=== PATIENT | male | born 1950 | race Caucasian/White ===

== ENCOUNTER 2021-03-12 12:27 | Observation (INO) ==
[~2021-03-12 12:27] MED LIST: Buffered Lidocaine 1% SYRIN 1 ml INTRADERM ONE; Lactated Ringers 1000 ml BAG 1,000 ML IV SCH
[2021-03-12] MEDS ORDERED: Gentamicin ADULT 140 MG in NS 0.9% 100 ml BAG 100 ML IVPB ONE (13:00)
[2021-03-12] MEDS ORDERED: cefTRIAXone 2 GM ADDV.VIAL 2 GM in NS 0.9% 100 ml BAG 100 ML IV ONE (14:00)
[2021-03-12] MEDS ORDERED: Propofol 10 mg/ml 100 ML BTL 100 ML ONE (15:36)
[2021-03-12] MEDS ORDERED: Furosemide 20 mg/2 ml IV VIAL ONE (15:36)
[2021-03-12] MEDS ORDERED: Propofol 10 MG/ML 20 ML BTL ONE ×2 (15:39→18:13)
[2021-03-12] MEDS ORDERED: fentaNYL 100 mcg/2 ml 50 MCG/ML VIAL ONE ×3 (15:39→20:35)
[2021-03-12] MEDS ORDERED: Phenylephrine IV 10 MG/ML 1 ml VIAL ONE (15:39)
[2021-03-12] MEDS ORDERED: Lidocaine 2% PF 5 ML VIAL ONE (15:41)
[2021-03-12] MEDS ORDERED: Prochlorperazine 5 mg/ml 2 ml VIAL (10 mg) IV PRN (16:29)
[2021-03-12] MEDS ORDERED: Naloxone 0.4 mg VIAL 0.4 mg/ml 1 ml VIAL IV PRN (16:29)
[2021-03-12] MEDS ORDERED: Morphine 4 MG/ML VIAL (1 ml) IV PRN (16:29)
[2021-03-12] MEDS ORDERED: HYDROcodone/ACETAMIN 5/325 mg TAB PO PRN (16:29)
[2021-03-12] MEDS ORDERED: fentaNYL 100 mcg/2 ml 50 MCG/ML VIAL IV PRN (16:29)
[2021-03-12] MEDS ORDERED: Phenylephrine 40 mcg/mL 10mL (400mcg) SYRINGE ONE (18:07)
[2021-03-12] MEDS ORDERED: Ondansetron 4 mg VIAL 2 MG/ML 2 ml VIAL ONE (19:17)
[2021-03-12 20:52] LABS: ABS Eosinophils 0.1 10^3/ul (0-0.6); ABS Lymphocytes 1.9 10^3/ul (1.0-4.8); ABS Monocytes 0.9 10^3/ul (0-0.8); ABS Neutrophils 12.2 10^3/ul (1.5-7.7); Eosinophil % 0.8 %; Hematocrit 39 % (42-52); Lymphocyte % 12.6 %; Mean Corpuscular HGB Conc 36 g/dL (31-36); Mean Corpuscular Hemoglobin 32 pg (27-31); Mean Corpuscular Volume 88 fL (80-94); Mean Platelet Volume 8.6 fL (7.4-10.4); Platelet Count 209 10^3/uL (150-450); Red Cell Distribution Width 14 % (10-15); White Blood Count 15.1 10^3/uL (3.5-10.8)
[2021-03-12 21:00] LABS: Albumin 3.5 g/dL (3.2-5.2); Calcium 7.8 mg/dL (8.6-10.3); Potassium 3.9 mmol/L (3.5-5.0); Total Bilirubin 0.6 mg/dL (0.2-1.0)
[2021-03-12 21:06] LABS: Albumin/Globulin Ratio 1.5 (1-3); EGFR African American 104.4 (>60); EGFR Non-African American 86.3 (>60); Globulin 2.3 g/dL (2-4); Total Protein 5.8 g/dL (6.4-8.9)
[2021-03-12] MEDS: Lactated Ringers 1000 ml BAG 1,000 ML IV SCH (23:39)
[2021-03-13 06:03] LABS: ABS Lymphocytes 0.9 10^3/ul (1.0-4.8); ABS Monocytes 0.6 10^3/ul (0-0.8); ABS Neutrophils 8.8 10^3/ul (1.5-7.7); Eosinophil % 0.1 %; Hematocrit 34 % (42-52); Hemoglobin 12.4 g/dL (14.0-18.0); Mean Corpuscular HGB Conc 36 g/dL (31-36); Mean Corpuscular Hemoglobin 32 pg (27-31); Mean Corpuscular Volume 87 fL (80-94); Mean Platelet Volume 8.4 fL (7.4-10.4); Nucleated Red Blood Cells % 0.1; Platelet Count 178 10^3/uL (150-450); Red Blood Count 3.93 10^6 /uL (4.18-5.48); Red Cell Distribution Width 14 % (10-15); White Blood Count 10.3 10^3/uL (3.5-10.8)
[2021-03-13 06:22] LABS: Calcium 7.7 mg/dL (8.6-10.3); Potassium 4.2 mmol/L (3.5-5.0)
[2021-03-13] MEDS ORDERED: Pneumococcal Vac 23-Polyvalent IM ONE (09:00)
[2021-03-13] MEDS ORDERED: Furosemide 20 mg/2 ml IV VIAL IV ONE (17:30)
[2021-03-13] MEDS: Lactated Ringers 1000 ml BAG 1,000 ML IV SCH (17:57)
[2021-03-14] MEDS: Lactated Ringers 1000 ml BAG 1,000 ML IV SCH ×2 (01:41→09:02)
[2021-03-14 07:25] VITALS: BP 95/58
[2021-03-14] MEDS ORDERED: cefTRIAXone 2 GM ADDV.VIAL 2 GM in NS 0.9% 100 ml BAG 100 ML IV ONE (10:30)
== END 2021-03-14 11:45 | disposition home or self-care (01) ==
LOC: SSU 12:27 → OR 12:27
PROVIDERS: ADMIT Urology; ATTEND Urology

== ENCOUNTER 2023-06-15 19:01 | Observation (INO) ==
[2023-06-15] MEDS ORDERED: Heparin DRIP 25,000 UNITS BAG 25,000 UNITS/250 ML BAG IV SCH (19:30)
[2023-06-15] MEDS ORDERED: Heparin DRIP 25,000 UNITS BAG 0 UNITS/0 ML BAG IV ONE (19:32)
[2023-06-15] MEDS ORDERED: Heparin 5000 UNITS/ML 1 mL VIAL IV SCH (20:00)
[2023-06-15 22:02] LABS: ABS Eosinophils 0.2 10^3/uL (0.0-0.5); ABS Lymphocytes 2.4 10^3/uL (1.0-4.8); ABS Monocytes 0.5 10^3/uL (0.0-1.1); ABS Neutrophils 4.3 10^3/uL (1.5-7.6); ABS Nucleated RBC 0.02 10^3/ul; Eosinophil % 2.6 %; Hemoglobin 13.9 g/dL (13.2-16.3); Lymphocyte % 32.5 %; Mean Corpuscular Hemoglobin 31.6 pg (27-33); Mean Corpuscular Hgb Conc 35.6 g/dL (31-36); Mean Corpuscular Volume 88.7 fL (80-97); Mean Platelet Volume 7.9 fL (7.5-11.2); Nucleated Red Blood Cells % 0.2 %/100WBC (0.0-0.8); Platelet Count 241 10^3/uL (150-450); Red Cell Distribution Width 13.4 % (12-17); White Blood Count 7.5 10^3/uL (3.6-10.2)
[2023-06-15 23:07] LABS: Creatinine, Serum 0.86 mg/dL (0.67-1.17); eGFR CKD-EPI 90.3 (>60)
[2023-06-15] MEDS ORDERED: NS 0.9% 1000 ml BAG 1,000 ML IV SCH (23:45)
[2023-06-16 00:12] LABS: High Sensitivity Troponin 1 Hr 355 pg/mL (<20)
[2023-06-16 04:17] LABS: ABS Eosinophils 0.2 10^3/uL (0.0-0.5); ABS Monocytes 0.4 10^3/uL (0.0-1.1); ABS Neutrophils 3.1 10^3/uL (1.5-7.6); ABS Nucleated RBC 0.01 10^3/ul; Eosinophil % 3.2 %; Hematocrit 36.7 % (38-53); Hemoglobin 13.3 g/dL (13.2-16.3); Lymphocyte % 34.8 %; Mean Corpuscular Hemoglobin 31.6 pg (27-33); Mean Corpuscular Hgb Conc 36.2 g/dL (31-36); Mean Corpuscular Volume 87.2 fL (80-97); Mean Platelet Volume 7.9 fL (7.5-11.2); Nucleated Red Blood Cells % 0.1 %/100WBC (0.0-0.8); Platelet Count 213 10^3/uL (150-450); Red Blood Count 4.21 10^6/uL (4.06-5.63); Red Cell Distribution Width 13.5 % (12-17); White Blood Count 5.8 10^3/uL (3.6-10.2)
[2023-06-16 04:36] LABS: Calcium 8.3 mg/dL (8.6-10.3); Creatinine, Serum 0.76 mg/dL (0.67-1.17); Magnesium 1.9 mg/dL (1.9-2.7); Potassium 3.9 mmol/L (3.5-5.0); eGFR CKD-EPI 93.7 (>60)
[2023-06-16] MEDS ORDERED: CMCS: Dutasteride 0.5 mg CAP (NF) PO SCH (09:00)
[2023-06-16 09:35] LABS: High Sensitivity Troponin 1 Hr 229 pg/mL (<20)
[2023-06-16] MEDS ORDERED: fentaNYL 100 mcg/2 ml 50 MCG/ML VIAL IV SLOW PU ONE (10:37)
[2023-06-16] MEDS ORDERED: Midazolam 10 mg/10 ml VIAL 1 mg/ml 10 ml VIAL (10 mg) IV SLOW PU ONE (10:37)
[2023-06-16] MEDS ORDERED: fentaNYL 100 mcg/2 ml 50 MCG/ML VIAL ONE (10:38)
[2023-06-16] MEDS ORDERED: VERAPAMIL 2.5 MG/ML 2 ML VIAL ** 5 mg/2 ml ONE (10:38)
[2023-06-16] MEDS ORDERED: Heparin 1,000 UNIT/ML 10 ml (10,000 UNITS) CATHLAB/DIALYSIS ONE (10:38)
[2023-06-16] MEDS ORDERED: Midazolam 5 mg/5 ml VIAL 1 mg/ml 5 ml VIAL (5 mg) ONE (10:38)
[2023-06-16] MEDS ORDERED: nitroGLYCERIN DRIP 25,000 MCG/250 ML BTL ONE (10:39)
[2023-06-16] MEDS ORDERED: Iohexol 350 (CONTRAST) 200 ML MDV IV ONE (10:39)
[2023-06-16] MEDS ORDERED: Heparin 2 UNITS/ML 1000 mls 2,000 ML IV ONE (10:39)
[2023-06-16] MEDS ORDERED: Lidocaine 1% MPF 5 ML VIAL ONE (10:39)
[2023-06-16] MEDS ORDERED: Heparin 2 UNITS/ML 1000 mls 1,000 ML IV ONE (11:35)
[2023-06-16] MEDS ORDERED: NS 0.9% 1000 ml BAG 1,000 ML IV SCH (12:15)
[2023-06-16] MEDS ORDERED: Acetaminophen IV 1 GM/100ML 1,000 MG/100 ML BAG IV ONE (13:40)
[2023-06-16 14:19] VITALS: BP 163/80
== END 2023-06-16 14:05 | disposition home or self-care (01) ==
LOC: EDHOLD 19:01 → ED 19:01 → SUATTDRO 21:23 → MEDTELE 23:21 → ICU 06-16 13:36
PROVIDERS: ADMIT Internal Medicine; ATTEND Hospitalist